=== PATIENT | female | born 1985 | race Caucasian/White ===

== ENCOUNTER 2022-03-02 15:22 | Emergency (ER) | payer OTHER ==
[~2022-03-02] VITALS: Ht 157.5 cm; Wt 90.0 kg
[2022-03-02] MEDS ORDERED: INSNPH SQ (15:45)
[2022-03-02 16:32] VITALS: BP 132/87
[2022-03-02] MEDS ORDERED: PRED-554 PO (17:18)
== END 2022-03-02 17:34 | disposition home or self-care (01) ==
LOC: EMS 15:32
DX: O90.89 Other complications of the puerperium, not elsewhere classified (principal); T78.49XA Other allergy, initial encounter; E11.9 Type 2 diabetes mellitus without complications; Z98.890 Other specified postprocedural states; Z90.89 Acquired absence of other organs; Z88.6 Allergy status to analgesic agent; Z91.013 Allergy to seafood; X58.XXXA Exposure to other specified factors, initial encounter
CPT/HCPCS: 99283; Z7502